=== PATIENT | female | born 1965 | race Two or more races ===

== ENCOUNTER 2016-06-20 11:40 | Emergency (ER) | payer MEDICAID ==
[2016-06-20 13:09] VITALS: BP 134/71
[2016-06-20] MEDS ORDERED: KETOROLAC TROMETH 60MG/2ML VIAL IM ONE (14:15)
== END 2016-06-20 15:05 | disposition home or self-care (01) ==
LOC: ER 11:40
DX: G89.29 Other chronic pain (principal); M54.40 Lumbago with sciatica, unspecified side; M51.36 Other intervertebral disc degeneration, lumbar region; Z98.51 Tubal ligation status
CPT/HCPCS: 72100; 96372; 99284; J1885

== ENCOUNTER 2016-09-01 17:04 | Observation (INO) | payer BC, MEDICAID ==
[~2016-09-01] VITALS: Ht 165.1 cm; Wt 90.7 kg
[2016-09-01 18:26] LABS: Urine Bilirubin Negative (Negative); Urine Blood TRACE /uL (Negative); Urine Glucose Normal (Normal); Urine Ketone Negative (Negative); Urine Nitrite Negative (Negative); Urine RBC 4 /hpf (0 - 4); Urine Squamous Epithelial Cell FEW /hpf (<5); Urine Urobilinogen Normal (Negative); Urine pH 5.5 (5.0-8.0)
[2016-09-01 18:36] LABS: Urine Color Straw (Yellow)
[2016-09-01 19:35] LABS: Basophils # (auto) 0 uL; Basophils % (auto) 0.3 % (0.0-2.0); Eosinophils # (auto) 0.2 uL; Eosinophils % (auto) 1.6 % (0.0-7.0); Hematocrit 38.8 % (36.0-46.0); Hemoglobin 12.9 g/dL (12.2-16.2); Lymphocytes # (auto) 3.1 uL; Mean Corpuscular Hemoglobin 29.4 pg (28.0-32.0); Mean Corpuscular Hgb Conc. 33.1 g/dL (32.0-36.0); Mean Platelet Volume 7.9 fL (7.4-10.4); Monocytes # (auto) 0.7 uL; Monocytes % (auto) 6.5 % (0.0-12.0); Neutrophils # (auto) 7.4 uL; Neutrophils % (auto) 64.6 % (37.0-80.0); Platelet Count (auto) 369 10^3/uL (140-450); Red Cell Distribution Width 13.8 % (11.6-16.0); White Blood Cell 11.5 10^3/uL (4.4-10.8)
[2016-09-01 20:03] LABS: Albumin 3.8 g/dL (3.4-5.0); Anion Gap 10 (5-15); BUN/Creatinine Ratio 14.7; Blood Urea Nitrogen 11 mg/dL (7-18); Calcium 8.1 mg/dL (8.5-10.1); Carbon Dioxide 25 mmol/L (21-32); Chloride 107 mmol/L (98-107); GFR African American 105 mL/min; GFR Non-African American 87 mL/min; Glucose 89 mg/dL (74-106); Magnesium 2.1 mg/dL (1.6-2.6); Sodium 142 mmol/L (136-145)
[2016-09-01 20:23] LABS: Alkaline Phosphatase 82 U/L (45-117); Aspartate Aminotransferase 34 U/L (15-37); Bilirubin, Total 0.2 mg/dL (0.2-1.0); Total Protein 7.5 g/dL (6.4-8.2)
[2016-09-01] MEDS ORDERED: metroNIDAZOLE 500 MG TAB PO ONE (23:15)
[2016-09-01] MEDS ORDERED: cefTRIAXone 1GM/50ML D5W 50 ML IV ONE (23:15)
[2016-09-01] MEDS ORDERED: MORPHINE SULFATE 4 MG/ML SYRG IV ONE (23:30)
[2016-09-01] MEDS ORDERED: ONDANSETRON HCL 4 MG/2 ML VIAL IV ONE (23:30)
[2016-09-01] MEDS ORDERED: SODIUM CHLORIDE 0.9% 1,000 ML IV ONE (23:30)
[2016-09-01 23:32] VITALS: BP 127/83
== END 2016-09-02 00:17 | disposition home or self-care (01) | DRG 392 ==
LOC: ER 17:04 → OVERFLOW 17:05 → UNDOADMOB 17:05 → TELE 22:21 → ER 09-02 00:16 → UNDODISOB 09-02 00:17 → ER 09-02 00:17
PROVIDERS: ADMIT Emergency Medicine; ATTEND Emergency Medicine
DX: R10.2 Pelvic and perineal pain (principal); R10.13 Epigastric pain; R10.84 Generalized abdominal pain; K52.9 Noninfective gastroenteritis and colitis, unspecified; D72.829 Elevated white blood cell count, unspecified; D72.823 Leukemoid reaction
CPT/HCPCS: 36415; 74176; 80053; 81001; 83735; 84484; 85025; 93005; 96365; 96375; G0378; J0696; J2405